=== PATIENT | female | born 1990 | race African-American/Black ===

== ENCOUNTER 2023-07-07 18:24 | Emergency (ER) | payer MEDICAID ==
[~2023-07-07] VITALS: Ht 177.8 cm; Wt 143.0 kg
[2023-07-07 18:34] VITALS: O2SAT 99
[2023-07-07] MEDS: LOPERAMIDE HCL 2MG CAPSULE PO ONE (19:07)
[2023-07-07] MEDS: ONDANSETRON 4MG ODT PO STA (19:07)
[2023-07-07] MEDS: MAGNESIUM/ALUMINUM HYDROXIDE/SIMETHICONE 30ML UDC PO STA (19:08)
[2023-07-07] MEDS: FAMOTIDINE 20MG TABLET PO ONE (19:08)
[2023-07-07] MEDS: VISCOUS LIDOCAINE 2% 15 ML UDC PO NR (19:09)
[2023-07-07] MEDS: DIPHENHYDRAMINE 50MG/ML VIAL IV ONE (20:17)
[2023-07-07] MEDS: METOCLOPRAMIDE HCL 10MG/2ML VIAL IV ONE (20:17)
[2023-07-07] MEDS: SODIUM CHLORIDE 0.9% 1,000 ML IV ONE (20:17)
[2023-07-07] MEDS: KETOROLAC 15MG/ML VIAL IV ONE (20:17)
[2023-07-07] MEDS ORDERED: IBUP-2028 MT (22:04)
[2023-07-07 22:17] VITALS: BP 150/98; PULSE 76; RESP 18; TEMP 99.1
[2023-07-07 22:19] LABS: CLARITY URINE TURBID (CLEAR); COLOR URINE DARK YELLOW (YELLOW); GLUCOSE URINE NEGATIVE (NEGATIVE); KETONES URINE 2+ (NEGATIVE); LEUKOCYTE ESTERASE URINE TRACE (NEGATIVE); NITRITE URINE NEGATIVE (NEGATIVE); OCCULT BLOOD URINE 3+ (NEGATIVE); PH URINE 5.5 (4.5-8.0); PROTEIN URINE 1+ (NEGATIVE); SPECIFIC GRAVITY URINE 1.032 (1.005-1.030)
[2023-07-07 22:33] LABS: BACTERIA URINE TRACE; RBC URINE 25-50 /hpf (0-2); SQUAMOUS EPITHELIAL CELL URINE 3+ /lpf (RARE/1+)
== END 2023-07-07 22:27 | disposition home or self-care (01) ==
LOC: ER 19:18
DX: R19.7 Diarrhea, unspecified (principal); R10.9 Unspecified abdominal pain; R51.9 Headache, unspecified; Z20.822 Contact with and (suspected) exposure to COVID-19
CPT/HCPCS: 99291; 96374; 96361; 96375; 87426; 81003; 81025; 87804 ×2; Q0162; J1200; J1885; J2765; J7030